=== PATIENT | female | born 2000 | race Caucasian/White ===

== ENCOUNTER 2022-09-04 10:16 | Emergency (ER) | payer SELFPAY ==
[~2022-09-04] VITALS: Ht 160 cm; Wt 85.7 kg
--- NOTE | 2022-09-04 10:31 | NUR ---
at bedside for evaluation.
[2022-09-04] MEDS ORDERED: POLY10DR6 RIGHTEYE (10:36)
--- NOTE | 2022-09-04 10:45 | NUR ---
Patient discharged to home in stable condition. Written and verbal after care instructions given. Patient verbalizes understanding of instructions. Stressed follow up or return to ER for worsening s/s.
[2022-09-04 10:50] VITALS: BP 138/85
== END 2022-09-04 10:50 | disposition home or self-care (01) ==
LOC: ER 10:16
DX: H10.31 Unspecified acute conjunctivitis, right eye (principal); Z79.899 Other long term (current) drug therapy
CPT/HCPCS: A4663